=== PATIENT | female | born 1985 | race Caucasian/White ===

== ENCOUNTER → 2024-04-06 09:47 | Outpatient (CLI) | payer OTHER, SELFPAY ==
--- NOTE | 2024-04-06 | DI.MG.S_ITS ---
BILATERAL DIGITAL DIAGNOSTIC MAMMOGRAM 3D/2D SHORT-TERM FOLLOW-UP: 04/06/2024 CLINICAL: Short term follow up for bilateral breasts. Comparison is made to exam dated: 10/20/2023 mammogram - [facility]. Both breasts are extremely dense, which lowers the sensitivity of mammography (category d />75% glandular tissue). There is a benign round skin calcification in the right breast at 3 o'clock middle depth. There is a benign skin calcification in the left breast at 10 o'clock posterior depth. No other significant masses or calcifications are seen in either breast. IMPRESSION: BENIGN There is no mammographic evidence of malignancy. Benign calcifications in both breasts. A 1 year screening mammogram is recommended. Exam findings were conveyed to the patient. Based on the Tyrer Cuzick model (a risk assessment model) the patient's lifetime risk is 13.3% and her 10 year risk is 1.7%. According to the ACR, ACS, and NCCN guidelines, an annual breast MRI exam along with mammogram is recommended if the patient's lifetime risk is 20% or greater. This exam was interpreted at Station ID: [id number]. NOTE: For mammograms, a report in lay terms will be sent to the patient. Approximately 15% of breast malignancies will not be visualized mammographically. In the management of a palpable breast mass, a negative mammogram must not discourage biopsy of a clinically suspicious lesion. Electronically Signed By: Santo Jackson M.D. slc/:04/06/2024 10:22:20 letter sent: Normal Exam ACR BI-RADS Category 2: Benign Finding(s) 3342F
== END ==
DX: R92.0 Mammographic microcalcification found on diagnostic imaging of breast (principal); R92.343 Mammographic extreme density, bilateral breasts
CPT/HCPCS: 77066; G0279